=== PATIENT | female | born 2000 | race Caucasian/White ===

== ENCOUNTER 2024-08-12 15:48 | Emergency (ER) | payer BC, SELFPAY ==
[2024-08-12 15:48] VITALS: BMI 21.3
[2024-08-12 15:50] VITALS: BP 151/83
[2024-08-12 16:20] LABS: % Basophils 1.4 % (0-2); % Immature Granulocytes 0.4 % (0-0.5); % Lymphocytes 33.9 % (20.5-51.1); % Monocytes 14.7 % (1.7-9.3); % Neutrophils 48.6 % (42.2-75.2); Absolute Basophils 0.1 10^3/uL (0-0.2); Absolute Eosinophils 0.1 10^3/uL (0-0.7); Absolute Lymphocytes 1.7 10^3/uL (1.2-3.4); Absolute Monocytes 0.7 10^3/uL (0.1-0.6); Absolute Neutrophils 2.4 10^3/uL (1.4-6.5); Hematocrit 45.4 % (37.0-47.0); Hemoglobin 15.2 g/dL (12.0-16.0); Mean Corp Hgb Conc. 33.5 g/dL (33.0-37.0); Mean Corpuscular Hgb 30.7 pg (27.0-31.0); Mean Corpuscular Volume 91.7 fL (81.0-99.0); Mean Platelet Volume 10.6 fL (7.4-10.4); Nucleated Red Blood Cells % 0 %; Platelet Count 212 10^3/uL (130-400); Red Blood Cell Count 4.95 10^6/uL (4.20-5.40); Red Cell Dist. Width 11.2 % (11.5-14.5); White Blood Cell Count 4.9 10^3/uL (4.8-10.8)
[2024-08-12 16:28] LABS: ALT (SGPT) 15 U/L (0-35); AST (SGOT) 23 U/L (14-36); Albumin 5.2 g/dl (3.5-5.0); Alkaline Phosphatase 36 U/L (38-126); Blood Urea Nitrogen 12 mg/dl (7-17); Calcium 10.3 mg/dl (8.4-10.2); Carbon Dioxide 21 mmol/L (22-30); Chloride 107 mmol/L (98-107); Glucose 112 mg/dl (70-99); Potassium 3.6 mmol/L (3.5-5.1); Sodium 144 mmol/L (135-145); Total Bilirubin 0.7 mg/dl (0.2-1.3); Total Protein 8.9 g/dl (6.3-8.2); eGFR > 60.00
[2024-08-12 18:19] VITALS: BP 142/81
--- NOTE | 2024-08-12 19:00 | ED.GENMED ---
History of Present Illness
General
Chief Complaint: Heart Rate Problem
Time Seen by Provider: 08/12/24 18:43
History of Present Illness
History of Present Illness:
24-year-old female history of IBS presenting with high heart rate intermittently for the past 1 month. Patient states that today she notes that her heart rate was persistently high up to 170 prompting ED arrival. Patient states that she has
palpitations and feels that her heart rate is high so she checks it on a pulse ox. Patient denies chest pain or shortness of breath. Patient reports intermittent lightheadedness. Patient reports nausea but denies vomiting, diarrhea, abdominal
pain, or urinary symptoms. LMP 10 days ago. Patient is not on control. Patient denies any recent prolonged travel or immobilization or surgery. No history of DVT/PE. Patient states her mother has a history of POTS.
Past History
Past History
ED Past Medical History: None
ED Past Surgical History: None
Phy Exam
Physical Exam
Physical Exam:
General: Alert, no acute distress
Head: NCAT
Eyes: clear conjunctiva
Neck: supple
Cardiac: tachycardia, regular rhythm, no murmur
Lungs: clear to auscultation bilaterally. No wheezes, rales, or rhonchi. Speaking full unlabored sentences. No respiratory distress.
Abdomen: soft, nondistended nontender. No rebound or guarding.
MSK: no lower extremity edema bilaterally. No deformity
Skin: warm, dry
Neuro: Alert and oriented x3. no focal deficits
Course
Orders/Labs/Results
Orders:
Orders
08/12/24 15:49
EKG [Electrocardiogram (*1)] Urgent
Reason for Study: Chest Pain
EKG- Treatment ONCE
08/12/24 16:03
CBC/With Diff [Complete Blood Count/With Diff] Urgent
Comprehensive Metabolic Panel Urgent
TSH Reflex To Free T4 Urgent
Comment: TSH REFLEX ADDED ON BY FLOOR 4:40PM 08-12-24
08/12/24 16:36
Add On- LAB Urgent
Tests Added?: tsh reflex t4
08/12/24 18:51
0.9% Sodium Chloride 1000 ml [Nss] 1,000 ml IV BOLUS
Test Result ONCE
08/12/24 19:19
DDimer [D-Dimer] Urgent
, Urine Qualitative Screen [HCG, Urine Qualitative Screen] Urgent
Date Specimen was Collected: 08/12/24
Time Specimen was Collected: 19:06
Troponin I Urgent
Abnormal Lab Results
08/12/24
16:03
RDW 11.2 L %
(11.5-14.5)
MPV 10.6 H fL
(7.4-10.4)
Absolute Monos (auto) 0.7 H 10^3/uL
(0.1-0.6)
Monocytes % 14.7 H %
(1.7-9.3)
Carbon Dioxide 21 L mmol/L
(22-30)
Glucose 112 H mg/dl
(70-99)
Calcium 10.3 H mg/dl
(8.4-10.2)
Alkaline Phosphatase 36 L U/L
(38-126)
Total Protein 8.9 H g/dl
(6.3-8.2)
Albumin 5.2 H g/dl
(3.5-5.0)
08/12/24 16:03
08/12/24 16:03
Vital Signs
Initial and Last Documented VS:
Initial Vital Signs
Temp Pulse Resp BP Pulse Ox
98.1 F 146 16 151/83 100
08/12/24 15:50 08/12/24 15:50 08/12/24 15:50 08/12/24 15:50 08/12/24 15:50
Last Documented Vital Signs
Temp Pulse Resp BP Pulse Ox
98.3 F 107 20 113/67 99
08/12/24 18:19 08/12/24 20:00 08/12/24 20:00 08/12/24 20:00 08/12/24 20:00
MDM/Problems Addressed
Differential Diagnosis Includes:
Anemia, , POTS, PE, electrolyte abnormality
MDM/Problems Addressed:
24-year-old female presenting with palpitations intermittently for the past 1 month. Patient reports increased persistent palpitations today prompting ED arrival. Patient denies chest pain or shortness of breath. Initial EKG shows sinus
tachycardia 126 bpm with HI 140 QTc 431 no acute ischemic changes. Results reviewed. Urine negative. Troponin within normal limits. TSH within normal limits. Mild hypercalcemia otherwise labs within normal limits. D-dimer within
normal limits, low suspicion for PE. Hemoglobin 15.2. Discussed results with patient at bedside. Tachycardia improved with IV fluids. Stable for discharge with cardiology follow-up
*Critical Care Note
Total Time (30-74mins, 75-104mins- exclusive of procedures): Not Applicable
ED Attending Note
-
Portions of this chart may have been created with voice recognition software.� Occasional wrong word or��sound alike� substitutions may have occurred due to the inherent limitations of voice recognition software.
Discharge Plan
Departure
Patient Disposition: Home (Routine Discharge)
Date of Disposition: 08/12/24
Time of Disposition: 20:18
Patient with high blood pressure during this ER visit?: Yes
Discharge Problem:
Palpitations
Instructions: Palpitations (DC)
Prescriptions:
No Action
No Current Medications
0
Referrals:
Kuldeep Tineo MD [Active] -
Vangie Capps PA-C [Family Provider] -
Activity Restrictions/Additional Instructions:
Follow-up with cardiology outpatient
Drink plenty of water, stay hydrated
Return to the emergency department for chest pain, fever or new/worsening symptoms
Interventions
Interventions:
*Risk Screen - Suicide Last Done: 08/12/24 18:13
*General Assessment Last Done: 08/12/24 18:13
*Neglect/Abuse Screening Last Done: 08/12/24 18:13
ED- Fall Risk Assessment Last Done: 08/12/24 18:13
*Nursing Disposition Last Done: 08/12/24 20:29
ED- Cardiac Assessment Last Done: 08/12/24 18:13
ED- Pulmonary Assessment Last Done: 08/12/24 18:13
Discharge Date and Time
Discharge Date/Time: 08/12/24 20:29
Print Language: UPPER SORBIAN
[2024-08-12] MEDS: NSS 1000 IV (19:13)
[2024-08-12 19:32] LABS: HCG, Urine Qualitative Screen Negative
[2024-08-12 19:54] LABS: Troponin I < 0.012 ng/ml
[2024-08-12 19:59] LABS: D-Dimer < 0.27 ug/mlFEU (0.00-0.50)
[2024-08-12 20:00] VITALS: BP 113/67
== END 2024-08-12 20:29 | disposition home or self-care (01) ==
LOC: EMR 15:48
PROVIDERS: Student in an Organized Health Care Education/Training Program; EMERGENCY PHYSICIAN Emergency Medicine; FAMILY PHYSICIAN Physician Assistant Medical
DX: R00.2 Palpitations (principal); R03.0 Elevated blood-pressure reading, without diagnosis of hypertension
CPT/HCPCS: 99284; 80053; 81025; 84443; 84484; 85025; 85379; 93005

== ENCOUNTER → 2024-09-01 14:56 | Outpatient (REF) | payer BC, SELFPAY | LOC: HWRCS 14:56 | PROVIDERS: ATTENDING PHYSICIAN Internal Medicine Cardiovascular Disease; FAMILY PHYSICIAN Physician Assistant Medical | DX: R00.2 Palpitations (principal); R42 Dizziness and giddiness; R07.89 Other chest pain | CPT/HCPCS: 93306 ==